=== PATIENT | female | born 1980 | race Caucasian/White ===

== ENCOUNTER → 2021-04-15 00:11 | Outpatient (CLI) | payer OTHER, SELFPAY ==
[2021-04-15 19:43] LABS: SARS-CoV-2 RNA PCR Negative
== END ==
PROVIDERS: PCP Family Medicine; Visit Provider Obstetrics & Gynecology Gynecology
DX: Z01.812 Encounter for preprocedural laboratory examination (principal); Z20.822 Contact with and (suspected) exposure to COVID-19
CPT/HCPCS: C9803; U0003; U0005

== ENCOUNTER 2021-04-17 01:29 | Day surgery (SDC) | payer OTHER, SELFPAY ==
[2021-04-10 14:58] VITALS: BMI 29.7
--- NOTE | 2021-04-17 07:33 | WPDHPUPDATE1 ---
History and Physical Update Update Date/Time: 04/17/21 07:33 History and Physical has been reviewed, including an updated exam of the patient. There are NO changes in the patient's condition. Risks, benefits, and alternatives have been discussed and questions answered. Patient agrees to proceed with procedure.
--- NOTE | 2021-04-17 07:34 | PM.HPGS ---
History of Present Illness History of Present Illness Consent: Risks, benefits, and alternatives have been discussed and questions answered. Patient agrees to proceed with procedure. Chief complaint: menorrhaghia Narrative: Tamika Padron is a 40 year old female with heavy cycles. The patient has 2 days of very heavy bleeding changing a pad every hour. Cycles are regular and last approximately 5 days. Pelvic ultrasound reveals a slightly enlarged uterus at 10.6cm with a 3.7cm intramural fibroid. The endometrium appears grossly normal by ultrasound. It is recommended to further evaluate with hysteroscopy D& C. Risks of infection, bleeding, and perforation are reviewed. If there is a submucosal fibroid there is also a risk of fluid imbalance. Possible pathology was also discussed. Questions are answered and patient agrees to proceed. Review of Systems Review of Systems: Narrative: not repeated day of surgery; patient states no changes in status PMFSH Past Medical History Medical History (Updated 04/17/21 @ 07:39 by Loulou Mukherjee MD) Anxiety Depression (normal spontaneous vaginal delivery) x3 OCD (obsessive compulsive disorder) Surgical History Surgical History (Updated 04/17/21 @ 07:38 by Loulou Mukherjee MD) S/P brain surgery removal of polycystic astocytoma in 2006 S/P laparoscopic cholecystectomy Social History Social History Smoking status: Never smoker Alcohol intake: current Substance use: never Living arrangements: with family Gender identity (if verbalized by the patient): Female Sexual Orientation (if Verbalized by the Patient): Straight or Heterosexual Spiritual care concerns: No Meds Home Medications and Allergies Home Medications Medication Instructions Recorded Confirmed Type armodafinil 150 mg PO DAILY 04/10/21 04/10/21 History sertraline 100 mg PO DAILY 04/10/21 04/10/21 History Allergies Allergy/AdvReac Type Severity Reaction Status Date / Time No Known Allergies Allergy Verified 04/10/21 14:55 Exam Const: General: healthy appearing and alert Orientation/consciousness: patient oriented x3 Resp: Effort & Inspection: normal respiratory effort Auscultation: clear to auscultation bilaterally Cardio: Rate: regular rate Rhythm: regular rhythm GI: GI Palp: Yes Soft to palpation, No Tenderness to palpation present (GI) and No Palpable mass present : External Female Exam: normal external appearance Speculum Exam - Vagina: normal appearance of the vagina and normal vaginal discharge Speculum Exam - Cervix: normal appearance of the cervix and Other cervical findings present (very anterior) Bimanual exam- vagina & uterus: consistency normal and enlarged (12 weeks) Bimanual Exam- Adnexa, other: normal adnexae and No adnexal tenderness Neuro: General: patient oriented x3 Assessment and Plan Assessment and plan (1) Menorrhagia: Code(s): N92.0 - Excessive and frequent menstruation with regular cycle Status: Acute Assessment and Plan: Plan to proceed with hysteroscopy and D&C
--- NOTE | 2021-04-17 07:40 | WPDHPUPDATE1 ---
History and Physical Update Update Date/Time: 04/17/21 07:40 History and Physical has been reviewed, including an updated exam of the patient. There are NO changes in the patient's condition. Risks, benefits, and alternatives have been discussed and questions answered. Patient agrees to proceed with procedure.
[2021-04-17 08:04] VITALS: BP 118/79; PULSE 71; RESP 16; TEMP 36.4; O2SAT 100
[2021-04-17] MEDS: ACETAMINOPHEN 500 MG TABLET 1000 MG PO (08:26)
[2021-04-17] MEDS: LACTATED RINGERS 1,000 ML 30 ML IV CONT (08:34)
--- NOTE | 2021-04-17 09:03 | WPDANESEPPF ---
Anes - Initial Pre Proc Eval Procedure: Operation Date: 04/17/21 10:00 Proposed Procedures p Hysteroscopy, Dilation and Curettage with Possible Myosure - Loulou Mukherjee MD Date/Time: 04/17/21 09:03 Surgeon: Loulou Mukherjee MD Pre Op Diagnosis: menorrhaghia Patient Data Age: 40 Gender: F Height: 1.65 m Weight: 80.9 kg Last Vital Signs Temp 36.4 C L 04/17/21 08:04 Pulse 71 04/17/21 08:04 Resp 16 04/17/21 08:04 BP 118/79 04/17/21 08:04 Pulse Ox 100 04/17/21 08:04 Allergies Allergy/AdvReac Type Severity Reaction Status Date / Time No Known Allergies Allergy Verified 04/17/21 08:20 Home Medications Medication Instructions Recorded Confirmed Type armodafinil 150 mg PO DAILY 04/10/21 04/17/21 History sertraline 100 mg PO DAILY 04/10/21 04/17/21 History Patient hx anesthesia problems: none Family hx anesthesia problems: none PMFSH Past Medical History Medical History (Updated 04/17/21 @ 09:10 by Morro Lawrence MD) Anxiety Depression Menorrhagia (normal spontaneous vaginal delivery) x3 OCD (obsessive compulsive disorder) Overweight (BMI 25.0-29.9) Surgical History Surgical History (Updated 04/17/21 @ 07:38 by Loulou Mukherjee MD) S/P brain surgery removal of polycystic astocytoma in 2006 S/P laparoscopic cholecystectomy Social History Social History Smoking status: Never smoker Alcohol intake: current Substance use: never Living arrangements: with family Gender identity (if verbalized by the patient): Female Sexual Orientation (if Verbalized by the Patient): Straight or Heterosexual Spiritual care concerns: No Anes - Eval Final PreProcedure Day of Procedure 04/17/21 09:03 Patient weight: overweight Heart: regular rate and rhythm Lungs: clear to auscultation and normal air movement Airway: Mallampati scale class II Neurological: alert and oriented Last oral intake: >/= 8 hours ASA classification: III Emergent: no Anesthetic plan: proceed Anesthesia type and monitoring: general GIVS and LMA Informed Consent: The patient's anesthetic plan and its attendant risks and benefits were discussed with the patient/family/POA. Questions were solicited and answers provided to the satisfaction of the patient/family/POA.
--- NOTE | 2021-04-17 10:33 | PM.PROC ---
Procedure Note - Detailed Date of procedure: 04/17/21 Pre-op diagnosis: menorrhaghia Post-op diagnosis: same Procedure performed: D and C hysteroscopy Description of procedure: The patient was taken to the operating room and placed under anesthesia in the dorsal lithotomy position. She was prepped and draped in the usual sterile fashion. [place] speculum was placed in the vagina and the cervix is grasped on the anterior lip with a tenaculum. The cervix is injected in each quadrant with 1% lidocaine. The uterus is sounded to 10-1/2cm. The cervix is serially dilated with Hegars. The uterus is noted to be very anteverted. The diagnostic hysteroscope was placed with the stated findings noted. The hysteroscope was removed the sharp curette is used to sharply curette the endometrium until a good uterine cry is noted in all areas. Moderate amount of material was obtained. All instruments are removed. Sponge, needle, and instrument counts are correct per the OR staff. Patient is awakened from anesthesia and taken to recovery in stable condition. Anesthesia: MAC and local Surgeon: Loulou Mukherjee MD Estimated blood loss (mL): 5 Drains: No Packing: No Pathology: yes (Endometrial curettings) Complications: No immediate complications Condition: stable Disposition: PACU Findings: The uterus sounds to 10-1/2cm in the endometrium appears grossly secretory. No discrete lesions are noted.
[2021-04-17 10:34] VITALS: BP 120/70; PULSE 75; RESP 12; O2SAT 98
[2021-04-17 11:00] VITALS: BP 120/64; PULSE 82; RESP 14; O2SAT 100
[2021-04-17 11:20] VITALS: BP 127/84; PULSE 86; RESP 14
== END 2021-04-17 11:30 | disposition home or self-care (01) ==
PROVIDERS: PCP Family Medicine; Visit Provider Obstetrics & Gynecology Gynecology
PROC: 0U5B8ZZ Destruction of Endometrium, Via Natural or Artificial Opening Endoscopic (ICD-10-PCS; CPT 58563; principal; 2021-04-17 10:00)
DX: N92.0 Excessive and frequent menstruation with regular cycle (principal); F41.8 Other specified anxiety disorders; F42.8 Other obsessive-compulsive disorder
CPT/HCPCS: 58558; 88305; A9270; J2250; J2704; J3010; J7030; J7120

== ENCOUNTER 2021-07-10 00:22 | Day surgery (SDC) | payer OTHER, SELFPAY ==
[2021-07-03 16:13] VITALS: BMI 29.9
--- NOTE | 2021-07-07 18:11 | WPDANESEPP ---
Anes - Eval Pre Procedure Procedure: Operation Date: 07/10/21 08:15 Proposed Procedures p Hysteroscopy with Kay Ablation - Loulou Mukherjee MD Date/Time: 07/07/21 18:11 Pre Op Diagnosis: menorrhaghia Patient Data Age: 40 Gender: F Height: 1.65 m Weight: 81.65 kg Allergies Allergy/AdvReac Type Severity Reaction Status Date / Time No Known Allergies Allergy Verified 04/17/21 08:20 Home Medications Medication Instructions Recorded Confirmed Type armodafinil 150 mg PO DAILY PRN 04/10/21 07/03/21 History sertraline 200 mg PO DAILY 04/10/21 07/03/21 History Patient hx anesthesia problems: post op nausea/vomiting Family hx anesthesia problems: none PMFSH Past Medical History Medical History (Updated 04/17/21 @ 09:10 by Morro Lawrence MD) Anxiety Depression Menorrhagia (normal spontaneous vaginal delivery) x3 OCD (obsessive compulsive disorder) Overweight (BMI 25.0-29.9) Surgical History Surgical History (Updated 04/17/21 @ 07:38 by Loulou Mukherjee MD) S/P brain surgery removal of polycystic astocytoma in 2006 S/P laparoscopic cholecystectomy Social History Social History Smoking status: Never smoker Alcohol intake: current Substance use: never Gender identity (if verbalized by the patient): Female Spiritual care concerns: No Exam Day of Procedure 07/07/21 18:11
[2021-07-10 06:58] VITALS: BP 131/91; PULSE 76; RESP 16; TEMP 36.3; O2SAT 100
--- NOTE | 2021-07-10 07:06 | P.PNAN_ITS ---
Anes - Eval Final PreProcedure Day of Procedure 07/10/21 07:06 Patient weight: obese Heart: regular rate and rhythm Lungs: clear to auscultation Airway: Mallampati scale class II Neurological: alert and oriented Last oral intake: >/= 8 hours ASA classification: III Emergent: no Anesthetic plan: proceed Anesthesia type and monitoring: general GIVS and standard monitoring Informed Consent: The patient's anesthetic plan and its attendant risks and b enefits were discussed with the patient/family/POA. Questions were solicited and answers provided to the satisfaction of the patient/family/POA.
[2021-07-10] MEDS: ACETAMINOPHEN 500 MG TABLET 1000 MG PO (07:10)
[2021-07-10] MEDS: SCOPOLAMINE 1.5 MG PATCH TRANSDERM (07:11)
--- NOTE | 2021-07-10 07:17 | WPDHPUPDATE1 ---
History and Physical Update Update Date/Time: 07/10/21 07:17 History and Physical has been reviewed, including an updated exam of the patient. There are NO changes in the patient's condition. Risks, benefits, and alternatives have been discussed and questions answered. Patient agrees to proceed with procedure.
--- NOTE | 2021-07-10 07:17 | PM.HPGS ---
History of Present Illness History of Present Illness Consent: Risks, benefits, and alternatives have been discussed and questions answered. Patient agrees to proceed with procedure. Chief complaint: menorrhaghia Narrative: Tamika Padron is a 40 year old female here with menorrhagia. The patient has cycles lasting for 5 days that are quite heavy changing pads every hour for 2 days. The patient underwent hysteroscopy with benign findings and a polyp in April of 2021. Ultrasound did reveal fibroids but none were submucosal. There was no change in her cycles after the removal of the polyp. Patient is elected to proceed with endometrial ablation. Risks of infection, bleeding, perforation, and failure were reviewed. Success was reviewed. Patient voices understanding and agrees to proceed. Review of Systems Review of Systems: not repeated day of surgery; patient states no changes in status PMFSH Past Medical History Medical History (Updated 07/10/21 @ 07:19 by Loulou Mukherjee MD) Anxiety Depression Menorrhagia (normal spontaneous vaginal delivery) x3 OCD (obsessive compulsive disorder) Overweight (BMI 25.0-29.9) Status post hysteroscopy Surgical History Surgical History (Updated 04/17/21 @ 07:38 by Loulou Mukherjee MD) S/P brain surgery removal of polycystic astocytoma in 2006 S/P laparoscopic cholecystectomy Social History Social History Smoking status: Never smoker Alcohol intake: current Substance use: never Living arrangements: with family Gender identity (if verbalized by the patient): Female Spiritual care concerns: No Meds Home Medications and Allergies Home Medications Medication Instructions Recorded Confirmed Type armodafinil 150 mg PO DAILY PRN 04/10/21 07/10/21 History sertraline 200 mg PO DAILY 04/10/21 07/10/21 History prednisone 20 mg PO DAILY 07/10/21 07/10/21 History Allergies Allergy/AdvReac Type Severity Reaction Status Date / Time No Known Allergies Allergy Verified 04/17/21 08:20 Exam Const: General: healthy appearing and alert Orientation/consciousness: patient oriented x3 Resp: Effort & Inspection: normal respiratory effort Auscultation: clear to auscultation bilaterally Cardio: Rate: regular rate Rhythm: regular rhythm GI: GI Palp: Yes Soft to palpation, No Tenderness to palpation present (GI) and No Palpable mass present : External Female Exam: normal external appearance Speculum Exam - Vagina: normal appearance of the vagina and normal vaginal discharge Speculum Exam - Cervix: normal appearance of the cervix Bimanual exam- vagina & uterus: uterine size normal and consistency normal Bimanual Exam- Adnexa, other: normal adnexae and No adnexal tenderness Neuro: General: patient oriented x3 Assessment and Plan Assessment and plan (1) Menorrhagia: Code(s): N92.0 - Excessive and frequent menstruation with regular cycle Status: Acute Assessment and Plan: Plan to proceed with Kay endometrial ablation
[2021-07-10] MEDS: LACTATED RINGERS 1,000 ML 30 ML IV CONT (07:32)
[2021-07-10] MEDS: KETOROLAC 30 MG/ML VIAL (*BKC) IV PUSH (08:17)
--- NOTE | 2021-07-10 08:32 | W.PM.PROC2 ---
Procedure Note - Detailed Date of Procedure 07/10/21 Pre-op Diagnosis menorrhaghia Post-op Diagnosis same Procedure Performed Kay endometrial ablation Surgeon Loulou Mukherjee MD Anesthesia MAC and local Findings uterus sounds to 10.5cm in appears grossly normal Description of Procedure the patient was taken to the operating room and placed under anesthesia in the dorsal lithotomy position. She is prepped and draped in the usual sterile fashion. [place] speculum was placed in the vagina, cervix is grasped on the anterior lip with a tenaculum, and injected with 1% lidocaine in each quadrant. The uterus is sounded to 10.5cm. The hysteroscope was placed with the stated findings. The hysteroscope was removed and the ablation device opened and placed set at 6.5cm. Cavity assessment passed on the 1st attempt. Treatment cycle lasted the full 2 minutes. The ablation device was removed and the hysteroscope replaced. Good ablation effect is noted. All instruments are removed. Sponge, needle, and instrument counts are correct. Patient is awakened from anesthesia and taken to recovery in stable condition. Estimated Blood Loss 5 Drains No Packing No Pathology none sent Complications No immediate complications Condition stable Disposition PACU
[2021-07-10 08:37] VITALS: BP 125/81; PULSE 84; RESP 16; O2SAT 92
[2021-07-10 09:05] VITALS: BP 125/78; PULSE 73; RESP 16
[2021-07-10 09:29] VITALS: BP 132/92; PULSE 72; RESP 16
== END 2021-07-10 09:30 | disposition home or self-care (01) ==
PROVIDERS: PCP Family Medicine; Visit Provider Obstetrics & Gynecology Gynecology
PROC: 0U5B8ZZ Destruction of Endometrium, Via Natural or Artificial Opening Endoscopic (ICD-10-PCS; CPT 58563; principal; 2021-07-10 08:15)
DX: N92.0 Excessive and frequent menstruation with regular cycle (principal); F41.8 Other specified anxiety disorders; F42.9 Obsessive-compulsive disorder, unspecified; E66.9 Obesity, unspecified; Z68.30 Body mass index [BMI] 30.0-30.9, adult
CPT/HCPCS: 58563; A9270; J1100; J1885; J2250; J2405; J2704; J3010; J7030; J7120